=== PATIENT | male | born 1965 | race Caucasian/White ===

== ENCOUNTER 2017-04-28 16:03 | Emergency (ER) | payer SELFPAY ==
[2017-04-28 16:21] VITALS: BP 162/64
== END 2017-04-28 18:10 | disposition home or self-care (01) ==
LOC: ED 16:03
DX: S20.212A Contusion of left front wall of thorax, initial encounter (principal); F10.129 Alcohol abuse with intoxication, unspecified; R10.12 Left upper quadrant pain; Y08.89XA Assault by other specified means, initial encounter; Y93.89 Activity, other specified; Y99.8 Other external cause status; Y92.89 Other specified places as the place of occurrence of the external cause

== ENCOUNTER 2017-04-29 21:36 | Emergency (ER) | payer SELFPAY ==
[~2017-04-29] VITALS: Ht 180.3 cm; Wt 81.6 kg
[2017-04-29 22:36] LABS: BASOPHIL % 0.5 % (0-2); PLATELET COUNT 260 x10^3mcL (130-400)
[2017-04-29 22:47] LABS: CARBON DIOXIDE 29.9 mmol/L (21-32); CHLORIDE SERUM 104 mmol/L (98-107); CREATININE SERUM 0.7 mg/dL (0.7-1.3); GFR1 > 60 mL/min; GLUCOSE SERUM 99 mg/dL (74-106); SODIUM SERUM 140 mmol/L (136-145)
[2017-04-29 22:49] LABS: RED CELL DISTRIBUTION WIDTH 17.2 % (11.5-14.5)
[2017-04-29 23:00] LABS: ALKALINE PHOSPHATASE 86 U/L (46-116); ALT/SGPT 42 U/L (16-63); AST/SGOT 43 U/L (15-37); BILIRUBIN TOTAL 0.29 mg/dL (0.20-1.00); TOTAL PROTEIN, SERUM 7.5 g/dL (6.4-8.2)
[2017-04-29 23:04] LABS: ALBUMIN 3.2 g/dL (3.4-5.0)
[2017-04-30 06:17] VITALS: BP 156/97
== END 2017-04-30 06:17 | disposition home or self-care (01) ==
LOC: ED 21:36
PROVIDERS: Emergency Medicine
DX: F10.129 Alcohol abuse with intoxication, unspecified (principal); I10 Essential (primary) hypertension; E11.9 Type 2 diabetes mellitus without complications
CPT/HCPCS: 36415; G0480; Q0092

== ENCOUNTER 2017-05-02 18:50 | Emergency (ER) | payer SELFPAY ==
[2017-05-02 20:55] LABS: BASOPHIL % 0.4 % (0-2); PLATELET COUNT 197 x10^3mcL (130-400)
[2017-05-02 20:57] LABS: RED CELL DISTRIBUTION WIDTH 16.9 % (11.5-14.5)
[2017-05-02 21:02] LABS: CALCIUM 8.4 mg/dL (8.5-10.1); CARBON DIOXIDE 26.2 mmol/L (21-32); CHLORIDE SERUM 103 mmol/L (98-107); CREATININE SERUM 0.7 mg/dL (0.7-1.3); GFR1 > 60 mL/min; GLUCOSE SERUM 121 mg/dL (74-106); POTASSIUM SERUM 3.8 mmol/L (3.5-5.1); SODIUM SERUM 141 mmol/L (136-145)
[2017-05-02 21:47] LABS: ALBUMIN 3.1 g/dL (3.4-5.0); ALKALINE PHOSPHATASE 91 U/L (46-116); ALT/SGPT 36 U/L (16-63); AMYLASE 32 U/L (25-115); AST/SGOT 46 U/L (15-37); BILIRUBIN TOTAL 0.29 mg/dL (0.20-1.00); LIPASE 251 IU/L (73-393); TOTAL PROTEIN, SERUM 7.3 g/dL (6.4-8.2)
[2017-05-03] VITALS: BP 125/78
== END 2017-05-03 | disposition home or self-care (01) ==
LOC: ED 18:50
PROVIDERS: Emergency Medicine
DX: F10.129 Alcohol abuse with intoxication, unspecified (principal); E11.9 Type 2 diabetes mellitus without complications; I10 Essential (primary) hypertension
CPT/HCPCS: 36415; G0480; Q0092